=== PATIENT | female | born 1945 | race Caucasian/White ===

== ENCOUNTER → 2022-01-24 | Outpatient (CLI) | payer BC ==
[~2022-01-24] MED LIST: ELIQUIS 5 MG TAB5 MG PO; LOPRESSOR 25 MG25 MG PO; LOSARTAN-HCTZ1 EACH PO; NORVASC 5 MG TAB5 MG PO; VITAMIN D-32000 UNIT PO; ZYLOPRIM 300 M300 MG PO
== END ==
LOC: US 01-13 08:00 → KOH-I 01-20 09:00 → US 01-20 09:00 → KOH-I 08:26
DX: N17.9 Acute kidney failure, unspecified (principal); N18.9 Chronic kidney disease, unspecified; N28.1 Cyst of kidney, acquired
CPT/HCPCS: 76775